=== PATIENT | male | born 1975 | race Caucasian/White ===

== ENCOUNTER 2020-07-05 08:00 | Outpatient (CLI) | payer MEDICAID ==
--- NOTE | 2020-07-05 17:33 | XRAY Report ---
PROCEDURE: Abdomen Acute INDICATIONS: FLANK AND LOW BACK PAIN, ACUTE TECHNIQUE: One view chest and two views of the abdomen were acquired. COMPARISON: None FINDINGS: Surgical changes and devices: None. Chest: Lungs are clear. Heart size is normal. No pleural effusions. No pneumoperitoneum. Abdomen: Bowel gas pattern is normal. A 4 mm calcification just below the right fourth transverse pr ocess is suspicious for a right ureteral calculus. There is also a 4 mm calculus superimposed over th e right kidney consistent with a nonobstructive calculus. Visualized solid organ contours appear nor mal. Bones: No suspicious bony lesions. IMPRESSION: 1. 4 mm calculus just below the right fourth transverse process suspicious suspicious for a ureteral calculus. 2. 4 mm calculus superimposed over the right kidney consistent with a nonobstructive calculus. Reviewed by: Kory Deng on 07/05/2020 5:31 PM PST Approved by: Kory Deng on 07/05/2020 5:31 PM PST Station ID: [id number]
== END 2020-07-05 23:59 | disposition home or self-care (01) ==
LOC: DI.S 08:00
PROVIDERS: ATTEND Physician Assistant Medical
DX: R10.9 Unspecified abdominal pain (principal); R11.10 Vomiting, unspecified; M54.5 Low back pain; N20.0 Calculus of kidney
CPT/HCPCS: 81001

== ENCOUNTER 2020-07-05 08:00 | Outpatient (CLI) | payer MEDICAID ==
[2020-07-05 19:59] LABS: BILIRUBIN,URINE NEGATIVE (NEGATIVE); GLUCOSE, URINE (UA) NEGATIVE (NEGATIVE); KETONES,URINE (UA) NEGATIVE (NEGATIVE); LEUKOCYTE ESTERASE, URINE NEGATIVE (NEGATIVE); NITRITE,URINE NEGATIVE (NEGATIVE); OCCULT BLOOD,URINE LARGE (NEGATIVE); PROTEIN,URINE NEGATIVE (NEGATIVE); UROBILINOGEN,URINE 0.2 (NORMAL) E.U./dL (NORMAL)
[2020-07-05 20:03] LABS: CLARITY,URINE CLOUDY (CLEAR)
[2020-07-05 20:12] LABS: AMORPHOUS SEDIMENT,UR Marked /LPF; BACTERIA,URINE None Seen /HPF (None Seen); RBC,URINE None Seen /HPF (0-5); SQUAMOUS EPITHELIAL CELL,UR NONE SEEN (<= Few)
== END 2020-07-05 23:59 | disposition home or self-care (01) ==
LOC: LAB.S 08:00
PROVIDERS: ATTEND Physician Assistant Medical
DX: R10.9 Unspecified abdominal pain (principal); R11.10 Vomiting, unspecified; M54.5 Low back pain
CPT/HCPCS: 81001; 87086

== ENCOUNTER 2020-07-14 08:00 | Outpatient (CLI) | payer MEDICAID ==
[2020-07-19 00:06] LABS: SPECIMEN SOURCE KIDNEY; STONE WEIGHT 0.015 g
== END 2020-07-14 23:59 | disposition home or self-care (01) ==
LOC: LAB.R 08:00
PROVIDERS: ATTEND Physician Assistant
DX: N20.0 Calculus of kidney (principal)
CPT/HCPCS: 82365

== ENCOUNTER 2022-06-26 08:00 | Outpatient (CLI) | payer MEDICAID, OTHER ==
--- NOTE | 2022-06-27 15:52 | XRAY Report ---
PROCEDURE: Cervical Spine 2 View INDICATIONS: CERVICAL RADICULOPATHY TECHNIQUE: 4 view(s) of the cervical spine were acquired. COMPARISON: None. FINDINGS: Bones: No fractures or dislocations to the C7 level. The lateral masses of C1 appear intact on the odontoid view. No suspicious bony lesions. Loss of normal cervical lordosis. Soft tissues: No prevertebral soft tissue swelling. IMPRESSION: 1. Loss of normal cervical lordosis, suggestive of muscle spasm. 2. No acute fracture. No osseous lesion. If symptoms and/or clinical suspicion for pathology continue , further assessment with repeat plain films, or advanced imaging (e.g., CT, MRI, or bone scan) is re commended for further assessment. Reviewed by: Fozia Palmer MD on 06/27/2022 3:50 PM PST Approved by: Fozia Palmer MD on 06/27/2022 3:50 PM PST Station ID: [id number]
--- NOTE | 2022-06-27 15:53 | XRAY Report ---
PROCEDURE: Lumbar Spine 2 View INDICATIONS: LUMBAR RADICULOPATHY TECHNIQUE: 3 views of the lumbar spine were acquired. COMPARISON: None. FINDINGS: Bones: 5 [id number] vertebrae are present. There is normal bony alignment. No vertebral body compression fractures. No suspicious bony lesions. Soft tissues: Overlying bowel gas pattern is normal. No suspicious soft tissue calcifications. IMPRESSION: No acute fracture. No osseous lesion. If symptoms and/or clinical suspicion for patholog y continue, further assessment with repeat plain films, or advanced imaging (e.g., CT, MRI, or bone s can) is recommended for further assessment. Reviewed by: Fozia Palmer MD on 06/27/2022 3:51 PM PST Approved by: Fozia Palmer MD on 06/27/2022 3:51 PM PST Station ID: [id number]
== END 2022-06-26 23:59 | disposition home or self-care (01) ==
LOC: DI.S 08:00
PROVIDERS: ATTEND Physician Assistant
DX: M54.12 Radiculopathy, cervical region (principal); M54.16 Radiculopathy, lumbar region

== ENCOUNTER 2022-09-19 07:00 | Outpatient (CLI) | payer OTHER, MEDICAID ==
--- NOTE | 2022-09-20 10:51 | XRAY Report ---
PROCEDURE: Wrist 4 View LT INDICATIONS: PAIN IN LEFT WRIST TECHNIQUE: 4 views of the wrist were acquired. COMPARISON: None. FINDINGS: Bones: No fractures or dislocations. No suspicious bony lesions. Scaphoid view: Unremarkable. Soft tissues: No suspicious soft tissue calcifications or masses. IMPRESSION: No acute bony abnormality. Reviewed by: Adam Reddy on 09/20/2022 10:49 AM PDT Approved by: Adam Reddy on 09/20/2022 10:49 AM PDT Station ID: [id number]
== END 2022-09-19 23:59 | disposition home or self-care (01) ==
LOC: DI.S 07:00
PROVIDERS: ATTEND Physician Assistant
DX: M25.532 Pain in left wrist (principal)